=== PATIENT | female | born 1980 | race Hispanic/Latino ===

== ENCOUNTER 2020-06-11 07:57 | Outpatient (CLI) | payer BC ==
[2020-06-10 14:48] VITALS: BMI 33.1
[2020-06-11 08:48] VITALS: BP 128/80; TEMP 97.8
[2020-06-11 09:23] LABS: BHCG - Serum Negative (NEGATIVE); Pregs Control Background? CLEAR/WHITE (CLR/WHITE); Pregs Control Bar Appear? YES (CONTROL BAR)
[2020-06-11] MEDS ORDERED: Acetaminophen 500 MG TAB ONE (10:22)
[2020-06-11] MEDS ORDERED: Iopamidol-M 200 41% 20 ML VIAL ONE (12:34)
== END 2020-06-11 11:00 | disposition home or self-care (01) ==
LOC: RAD 07:57
PROVIDERS: ATTEND Specialist
DX: M51.17 Intervertebral disc disorders with radiculopathy, lumbosacral region (principal); Z98.890 Other specified postprocedural states
CPT/HCPCS: 62304; 72132; 84703; Q9966

== ENCOUNTER 2021-08-19 12:35 | Outpatient (CLI) | payer BC | END 2021-08-19 12:36 | disposition home or self-care (01) | LOC: SCSRAD 12:35 | PROVIDERS: ATTEND Anesthesiology Pain Medicine | DX: S32.009K Unspecified fracture of unspecified lumbar vertebra, subsequent encounter for fracture with nonunion (principal); Z98.890 Other specified postprocedural states | CPT/HCPCS: 72110 ==